=== PATIENT | female | born 1995 | race Caucasian/White ===

== ENCOUNTER 2018-10-26 02:42 | Emergency (ER) | payer MEDICAID ==
[~2018-10-26] VITALS: Ht 172.7 cm; Wt 78.0 kg
[~2018-10-26 02:42] MED LIST: LITH300T5 PO; QUET400T PO
[2018-10-26 02:50] VITALS: BP 151/82
[2018-10-26] MEDS ORDERED: ibuprofen tablet 400 MG TABLET PO ONE (03:05)
== END 2018-10-26 03:14 | disposition home or self-care (01) ==
LOC: ER 02:42
DX: H92.01 Otalgia, right ear (principal); F12.90 Cannabis use, unspecified, uncomplicated; Z88.8 Allergy status to other drugs, medicaments and biological substances; Z79.899 Other long term (current) drug therapy
CPT/HCPCS: 99282